=== PATIENT | female | born 1990 | race Caucasian/White ===

== ENCOUNTER → 2017-01-12 | Outpatient (CLI) | payer OTHER ==
[2016-07-07 21:08] VITALS: BP 118/62
[~2017-01-12] MED LIST: AMOX1TAB61 PO; FLUT1DIS IH; HYDR115S2 PO; PRED50TA PO; PROAIR HFA8.5 GM IH
[2017-01-12 16:34] LABS: HEMATOCRIT 39.9 % (36.0-47.0); HEMOGLOBIN 13.3 g/dL (12.0-15.5)
[2017-01-12 16:47] LABS: ALBUMIN 3.7 g/dL (3.4-5.0); CALCIUM 8.9 mg/dL (8.5-10.1); CREATININE 0.8 mg/dL (0.6-1.0); GFR 86.7; MAGNESIUM 1.8 mg/dL (1.8-2.4); PHOSPHORUS 3.7 mg/dL (2.6-4.7); POTASSIUM 3.7 mmol/L (3.5-5.1)
== END | disposition home or self-care (01) ==
LOC: LAB 16:04
PROVIDERS: ATTEND Internal Medicine Nephrology
DX: Q61.5 Medullary cystic kidney (principal)
CPT/HCPCS: 36415; 80069; 83735; 85014; 85018

== ENCOUNTER → 2017-01-14 | Outpatient (CLI) | payer OTHER ==
[2016-07-07 21:08] VITALS: BP 118/62
[2017-01-15 14:29] LABS: PTH INTACT 39 pg/mL (15-65)
== END | disposition home or self-care (01) ==
LOC: LAB 13:08
PROVIDERS: ATTEND Family Medicine
DX: R73.09 Other abnormal glucose (principal); R79.89 Other specified abnormal findings of blood chemistry
CPT/HCPCS: 36415; 83970

== ENCOUNTER → 2017-01-29 | Outpatient (CLI) | payer OTHER ==
[2016-07-07 21:08] VITALS: BP 118/62
[2017-01-29 14:54] LABS: BILIRUBIN,URINE NEGATIVE (NEG); GLUCOSE,URINE NEGATIVE (NEG); NITRITE,URINE NEGATIVE (NEG); PROTEIN,URINE NEGATIVE (NEG-TRACE)
[2017-01-29 15:02] LABS: BACTERIA,URINE FEW /HPF (0-FEW); RBC,URINE 0 /HPF (0-2); SQUAMOUS EPITHELIAL CELL,UR MANY /LPF; WBC,URINE 0 /HPF (0-4)
== END | disposition home or self-care (01) ==
LOC: LAB 14:17
PROVIDERS: ATTEND Internal Medicine Nephrology
DX: N39.0 Urinary tract infection, site not specified (principal); Q61.5 Medullary cystic kidney; E66.3 Overweight
CPT/HCPCS: 81001; 87086

== ENCOUNTER 2017-04-21 19:39 | Emergency (ER) | payer OTHER ==
[2017-04-21 19:51] VITALS: BP 148/67
--- NOTE | 2017-04-21 20:09 | PHYS DOC ---
Past Medical History Past Medical History: Asthma Additional Past Medical Histor: Medullary Sponge Kidney Disease, borderline DM , tension headaches Past Surgical History: No Surgical History Alcohol Use: None Drug Use: None Adult General Chief Complaint Chief Complaint: SORE THROAT HPI HPI Patient is a 26 year old female presents to the emergency department with loss of voice for 3 days. She reports she does not have a sore throat. No fever. Really taking foods and fluids. She does complain a mild nasal congestion. Review of Systems Review of Systems Constitutional: Denies fever or chills [] Eyes: Denies change in visual acuity, redness, or eye pain [] HENT: Denies nasal congestion or sore throat; complaints of loss of voice, nasal congestion Respiratory: Denies cough or shortness of breath [] Cardiovascular: No additional information not addressed in HPI [] GI: Denies abdominal pain, nausea, vomiting, bloody stools or diarrhea [] : Denies dysuria or hematuria [] Musculoskeletal: Denies back pain or joint pain [] Integument: Denies rash or skin lesions [] Neurologic: Denies headache, focal weakness or sensory changes [] Endocrine: Denies polyuria or polydipsia [] Allergies Allergies Allergies Coded Allergies Type Severity Reaction Last Updated Verified No Known Drug Allergies 10/02/14 No Physical Exam Physical Exam Constitutional: Well developed, well nourished, no acute distress, non-toxic appearance. [] HENT: Normocephalic, atraumatic, bilateral external ears normal, oropharynx moist, no oral exudates, nose normal. [] Eyes: PERRLA, EOMI, conjunctiva normal, no discharge. [] Neck: Normal range of motion, no tenderness, supple, no lymphadenopathy Cardiovascular:Heart rate regular rhythm, no murmur [] Lungs & Thorax: Bilateral breath sounds clear to auscultation [] Abdomen: Bowel sounds normal, soft, no tenderness, no masses, no pulsatile masses. [] Skin: Warm, dry, no erythema, no rash. [] Back: No tenderness, no CVA tenderness. [] Extremities: No tenderness, no cyanosis, no clubbing, ROM intact, no edema. [] Neurologic: Alert and oriented X 3, normal motor function, normal sensory function, no focal deficits noted. [] Psychologic: Affect normal, judgement normal, mood normal. [] Current Patient Data Vital Signs Vital Signs Date Time Temp Pulse Resp B/P (MAP) Pulse Ox O2 Delivery O2 Flow Rate FiO2 04/21/17 19:51 98.0 87 17 98 Room Air 98.0 EKG EKG [] Radiology/Procedures Radiology/Procedures [] Course & Med Decision Making Course & Med Decision Making Rapid strep negative Pertinent Labs and Imaging studies reviewed. (See chart for details) [] Dragon Disclaimer Dragon Disclaimer This electronic medical record was generated, in whole or in part, using a voice recognition dictation system. Departure Departure Impression: Primary Impression: Laryngitis Disposition: 01 HOME, SELF-CARE Condition: STABLE Referrals: VADIM URIBE MD (PCP) Patient Instructions: Laryngitis Scripts Prednisone (PREDNISONE) 20 Mg Tablet 1 TAB PO DAILY, #5 TAB Prov: JADA SALCEDO APRN 04/21/17 JADA SALCEDO APRN Apr 21, 2017 20:09
[2017-04-21] MEDS ORDERED: PRED20TA PO (20:27)
[2017-04-22 07:28] LABS: NEGATIVE OBC STREP NEG; POSITIVE OBC STREP POS
== END 2017-04-21 20:33 | disposition home or self-care (01) ==
LOC: ER 19:39
DX: J04.0 Acute laryngitis (principal); J45.909 Unspecified asthma, uncomplicated
CPT/HCPCS: 87070; 87880; 99283

== ENCOUNTER 2017-10-02 21:54 | Emergency (ER) | payer OTHER ==
[2017-10-02] MEDS: LIDOCAINE WITH 8.4% SOD BICARB 3 ML DISP.SYRIN. IJ (22:44)
== END 2017-10-02 23:03 | disposition home or self-care (01) ==
LOC: ER 21:54
DX: L02.415 Cutaneous abscess of right lower limb (principal); L03.115 Cellulitis of right lower limb; J45.909 Unspecified asthma, uncomplicated
CPT/HCPCS: 10060; 99283-25

== ENCOUNTER → 2020-03-18 | Outpatient (CLI) | payer BC ==
[2017-10-07 11:00] VITALS: BP 113/73
[~2020-03-18] MED LIST changes: +ALBU2.5V8 IH; +CYCL5TAB PO; +HYDR-2761 PO; +HYDR-3164 PO; +NEOM1OIN6 TP; +PRED20TA PO; -PROAIR HFA8.5 GM IH; +SULF-143 PO; +SULF1TAB24 PO
--- NOTE | 2020-03-18 14:26 | RAD ---
Examination: RENAL COMPLETE BILATERAL History: Reason: MEDULLARY CYSTIC KIDNEY W/PVR / Spl. Instructions: / History: Comparison/Correlation: 01/06/2016 renal ultrasound exam Findings: Right kidney measures 9.6 cm x 5 cm x 4.9 cm. Left kidney measures 9.7 cm x 4.8 cm x 4.6 mm. Left renal interpolar cyst measuring 1.3 cm diameter is again identified. No hydronephrosis. Renal cortical thinning bilaterally is evident diffusely. No significant nephrocalcinosis is seen. Urinary bladder volume of 379.3 cc on prevoid imaging is evident. The urinary bladder is empty on postvoid imaging. Bilateral ureteral jets are present. Urinary bladder is unremarkable. Impression: Bilateral renal cortical atrophy. No suspicious interval change. Electronically signed by: Lalo Choi MD (03/18/2020 2:23 PM) [id number]
== END | disposition home or self-care (01) ==
LOC: US 12:17
PROVIDERS: ATTEND Internal Medicine Nephrology
DX: Q61.5 Medullary cystic kidney (principal); N26.1 Atrophy of kidney (terminal)
CPT/HCPCS: 76770

== ENCOUNTER → 2021-08-01 | Outpatient (CLI) | payer BC ==
[2017-10-07 11:00] VITALS: BP 113/73
--- NOTE | 2021-08-01 08:34 | RAD ---
EXAM: ULTRASOUND ABDOMEN COMPLETE CLINICAL HISTORY: Elevated Transaminase COMPARISON: None available. TECHNIQUE: Ultrasound of the upper abdomen was performed. FINDINGS: The head and body of the pancreas are unremarkable. The tail is obscured by intestinal gas.. The liver measures 16 cm in length in the right mid clavicular line. Increased hepatic echogenicity relative to the right kidney consistent with hepatic steatosis.. There are no focal liver lesions. F low seen within the portal veins. Shadowing gallstone is suspected within the gallbladder. No wall thickening or pericholecystic fluid. There is no pain with direct transducer pressure over the gallbladder. The common bile duct was not seen, obscured by overlying structures. The spleen measures 9.9 cm. The right kidney measures 10.6 cm in bipolar length. The left kidney measures 9.2 cm in bipolar lengt h. Renal cortex is thinned bilaterally. No hydronephrosis or focal renal lesion. The previously seen left renal cyst is not seen today. Visualized portions of the abdominal aorta and inferior vena cava are unremarkable although the aorta is mostly obscured by overlying structures. There is no free fluid in the upper abdomen. IMPRESSION: 1. Increased echogenicity of the liver consistent with fatty liver. 2. Suspected gallstone within the gallbladder without sonographic evidence for cholecystitis. 3. Bilateral renal cortical thinning. Electronically signed by: Kristofer Veras MD (08/01/2021 8:32 AM) [place] [id number]
== END ==
LOC: US 06:41
PROVIDERS: ATTEND Family Medicine
DX: R74.01 Elevation of levels of liver transaminase levels (principal)
CPT/HCPCS: 76700